=== PATIENT | male | born 1980 | race Caucasian/White ===

== ENCOUNTER 2024-07-13 06:31 | Emergency (ER) | payer OTHER ==
[2024-07-13 06:38] VITALS: BP 146/92; PULSE 78; RESP 18; TEMP 98.1; BMI 29.0
== END 2024-07-13 08:32 | disposition home or self-care (01) ==
LOC: JER 06:31
DX: T65.891A Toxic effect of other specified substances, accidental (unintentional), initial encounter (principal); H10.213 Acute toxic conjunctivitis, bilateral
CPT/HCPCS: 99283-25